=== PATIENT | female | born 1985 | race Caucasian/White ===

== ENCOUNTER → 2025-02-05 | Outpatient (CLI) | payer OTHER, SELFPAY ==
[2025-02-05 15:18] LABS: Cholesterol 201 mg/dL (<=200); High Density Lipoprotein 50 mg/dL; Low Density Lipoprotein Calc. 126 mg/dL; Triglycerides 126 mg/dL; Very Low Density Lipoprotein 25 mg/dL (5-40)
== END | disposition home or self-care (01) ==
LOC: LAB 12:12
PROVIDERS: PCP Nurse Practitioner Primary Care; Referring Provider Internal Medicine Cardiovascular Disease; Visit Provider Internal Medicine Cardiovascular Disease
DX: R03.0 Elevated blood-pressure reading, without diagnosis of hypertension (principal); R00.0 Tachycardia, unspecified; R42 Dizziness and giddiness; I49.3 Ventricular premature depolarization
CPT/HCPCS: 36415; 80061; 84443

== ENCOUNTER → 2025-02-15 | Outpatient (CLI) | payer OTHER, SELFPAY ==
--- NOTE | 2025-02-20 15:43 | STRESSREP ---
Stress Test Report Date: 02/15/2025 Procedure: Exercise tolerance test Indications: Arrhythmia Consent: Per the patient Procedure: The patient exercised on a Moi protocol for 8 minutes and 1 second achieving a peak heart rate of 187 bpm (102% predicted maximal heart rate) with a peak blood pressure 172/94 mmHg and a peak MET capacity of approximately 10.1 MET's. The baseline ECG demonstrated normal sinus rhythm. The peak exercise ECG failed to show any ischemic changes. There were no cardiac dysrhythmias pretest, during exercise, or recovery. The functional capacity was considered very good. The patient had no complaints of chest discomfort during exercise or recovery. The examination was discontinued secondary to target heart rate being achieved and dyspnea. Impression: 1. Technically adequate (percent predicted maximal heart rate greater than 85%) exercise tolerance test 2. Peak exercise ECG with no ischemic changes. No chest pain reported. 3. There were no cardiac dysrhythmias during exercise or recovery This note was generated with [employer] software. It may contain incorrect words, spelling, and punctuation that were not noted in checking the note before signing.
== END | disposition home or self-care (01) ==
LOC: CVS 12:31
PROVIDERS: PCP Nurse Practitioner Primary Care; Referring Provider Internal Medicine Cardiovascular Disease; Visit Provider Internal Medicine Cardiovascular Disease
DX: R00.0 Tachycardia, unspecified (principal); I49.3 Ventricular premature depolarization; R42 Dizziness and giddiness; I49.1 Atrial premature depolarization
CPT/HCPCS: 93017

== ENCOUNTER → 2025-05-07 | Outpatient (CLI) | payer OTHER, SELFPAY ==
[2025-05-06 16:16] LABS: Hematocrit 38.0 % (37-47); Hemoglobin 13.3 g/dL (12.0-15.0); Immature Granulocytes Count 0.010 X10^3/uL (0.0-0.0); Mean Corp Hgb Conc 35.0 g/dL (32-36); Mean Corpuscular Volume 88.8 fL (81-99); Mean Platelet Vol. 9.7 fl (6.2-12.0); NRBC Flagged by Analyzer 0 % (0-5); Platelet Count 378 K/mm3 (150-450); RBC Distribution Width CV 12.9 % (11.6-14.6); RBC Distribution Width SD 41.4 fl (35.1-43.9); Red Blood Count 4.28 M/mm3 (4.2-5.4); White Blood Count 8.2 K/mm3 (4.4-11.0)
[2025-05-06 17:26] LABS: Internal QC Validated? YES +Cl - CLEAR BKGD
[2025-05-06 17:27] LABS: Pregnancy, Serum, hCG Quali. NEGATIVE Negative; Record Kit Lot#, Serum Preg. 962302
[2025-05-06 17:32] LABS: Anion Gap 12 (5-15); BUN 13 mg/dL (4-19); BUN/Creat Ratio 14.9 RATIO (10-20); Calcium,Total 8.9 mg/dL (7.6-11.0); Carbon Dioxide 23.2 mmol/L (21.0-32.0); Chloride 105 mmol/L (98-108); Glucose 102 mg/dL (70-99); Potassium 3.7 mmol/L (3.3-5.1)
--- NOTE | 2025-05-08 07:09 | PCM.TILTTABL ---
Staff Staff: Nikki Moody and Gina Bae Summary Pre Test Resting HR: 86 Pre Test Resting BP: 129/89 Minimum Test HR: 0 Maximum Test HR: 113 Minimum Test BP: 0/0 Maximum Test BP: 132/102 Reason for Test Termination: Syncope Physician Tilt Table Report Patient's Physicians Primary Care Physician: Blanca Vázquez NP Indications/Diagnosis: Dizziness. Procedure Comments: Patient was brought to the noninvasive lab in the postabsorptive nonsedated state. Informed consent was obtained. Initial EKG was performed demonstrating sinus rhythm with a rate of 86 bpm and blood pressure of 129/89 mmHg. Patient was put in the 70 degree head upright tilt position. Patient maintained this position for approximately 12 minutes and then started getting pale tachypneic with a heart rate dropping from 109-70 and then became asystolic. Patient was put back in the recumbent position and eventually reached bonded to sternal rub. Patient was given intravenous normal saline which was started approximately 15 minutes after the beginning of the test. Patient recovered heart rate and blood pressure appropriately. Post tests the heart rate was 97 and the blood pressure of 113/87 and was asymptomatic. Summary: Positive head upright tilt table test suggestive of vasovagal syncope.
[2025-05-08 07:14] VITALS: BP 0/0; BP 129/89; BP 132/102
== END | disposition home or self-care (01) ==
PROVIDERS: PCP Nurse Practitioner Primary Care; Referring Provider Internal Medicine Cardiovascular Disease; Visit Provider Internal Medicine Cardiovascular Disease
DX: R42 Dizziness and giddiness (principal); R00.0 Tachycardia, unspecified; I49.3 Ventricular premature depolarization; I49.1 Atrial premature depolarization
CPT/HCPCS: 36415; 80048; 84703; 85025; 93660; A4216